=== PATIENT | male | born 1960 | race Caucasian/White ===

== ENCOUNTER 2017-09-09 17:30 | Emergency (ER) | payer OTHER ==
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
--- NOTE | 2017-09-09 20:23 | XR ---
EXAMINATION TYPE: XR ankle limited RT DATE OF EXAM: 09/09/2017 COMPARISON: NONE HISTORY: Pain TECHNIQUE: 2 view right ankle FINDINGS: Ankle mortise appears intact as visualized. Soft tissues are normal. No displaced fractures are identified. IMPRESSION: Normal 2 view right ankle
[2017-09-09 20:39] VITALS: BP 110/72; PULSE 87; RESP 19; TEMP 98.7
== END 2017-09-09 20:52 | disposition home or self-care (01) ==
LOC: EC 17:30
DX: M54.2 Cervicalgia (principal); R07.9 Chest pain, unspecified; M79.89 Other specified soft tissue disorders; Z79.899 Other long term (current) drug therapy; Z53.29 Procedure and treatment not carried out because of patient's decision for other reasons; V89.2XXA Person injured in unspecified motor-vehicle accident, traffic, initial encounter; Y92.410 Unspecified street and highway as the place of occurrence of the external cause
CPT/HCPCS: 71046; 72125; 72128; 99285